=== PATIENT | female | born 1930 | race Caucasian/White ===

== ENCOUNTER → 2016-11-09 | Outpatient (CLI) | payer MEDICARE, OTHER ==
[2015-02-15 06:31] VITALS: BP 156/80
[~2016-11-09] MED LIST: AMLODIPINE BESYL5 MG PO; AMPICILLIN 500500 MG PO; CELEBREX PO; CELEXA 20MG20 MG/TA1 PO; FLEXERIL PO; FOLIC ACID1 MG PO; FUROSEMIDE PO; GOOD NEIGHBOR325 MG PO; HYDROCHLOROTHIA50 MG PO; IRON325 M1 PO; LEVEMIR100 U/M1 SC; NORCO 325 MG-51 TAB PO; NOVOLOG FLEX100 U/ML SC; POTASSIUM CL 220 MEQ PO; PRINVIL PO; PROTONIX 40MG T40 MG PO; VITAMIN C100 M2 PO; ZOFRAN4 M1 PO; [UNRECOGNIZED DRUG - OTHER] PO
== END ==
LOC: RAD 09:57
DX: M54.5 Low back pain (principal); M25.551 Pain in right hip

== ENCOUNTER → 2016-11-26 | Outpatient (CLI) | payer MEDICARE, OTHER ==
[2015-02-15 06:31] VITALS: BP 156/80
== END ==
LOC: LAB 08:55
DX: E11.9 Type 2 diabetes mellitus without complications (principal); I10 Essential (primary) hypertension

== ENCOUNTER 2016-12-03 09:00 | Outpatient (RCR) | payer MEDICARE, OTHER ==
[2015-02-15 06:31] VITALS: BP 156/80
== END 2016-12-03 12:00 | disposition home or self-care (01) ==
LOC: PT 09:00
DX: M54.5 Low back pain (principal); M25.551 Pain in right hip; M47.9 Spondylosis, unspecified; M25.78 Osteophyte, vertebrae; M16.11 Unilateral primary osteoarthritis, right hip; Z96.642 Presence of left artificial hip joint

== ENCOUNTER → 2017-06-04 | Outpatient (CLI) | payer MEDICARE, OTHER ==
[2015-02-15 06:31] VITALS: BP 156/80
[2017-06-04 14:00] LABS: MEAN PLATELET VOLUME 11.6 fl (7.4-10.4); RED BLOOD COUNT 4.96 M/mm3 (4.10-5.30); RED CELL DISTRIBUTION WIDTH 13.8 % (11.5-14.5); WHITE BLOOD COUNT 6.1 K/mm3 (4.8-10.8)
== END ==
LOC: LAB 13:37
PROVIDERS: Family Medicine
DX: E11.9 Type 2 diabetes mellitus without complications (principal)

== ENCOUNTER → 2018-05-25 | Outpatient (CLI) | payer MEDICARE, OTHER ==
[2015-02-15 06:31] VITALS: BP 156/80
[2018-05-25 08:55] LABS: HEMATOCRIT 45.3 % (37.0-47.0); HEMOGLOBIN 15.1 g/dL (12.5-16.0); MEAN PLATELET VOLUME 11.8 fl (7.4-10.4); RED BLOOD COUNT 5.03 M/mm3 (4.10-5.30); RED CELL DISTRIBUTION WIDTH 13.2 % (11.5-14.5); WHITE BLOOD COUNT 6.1 K/mm3 (4.8-10.8)
== END ==
LOC: LAB 08:12
PROVIDERS: Family Medicine
DX: E11.9 Type 2 diabetes mellitus without complications (principal)

== ENCOUNTER → 2018-09-27 | Outpatient (CLI) | payer MEDICARE, OTHER ==
[2015-02-15 06:31] VITALS: BP 156/80
== END ==
LOC: RAD 09:12
DX: I51.7 Cardiomegaly (principal); R06.2 Wheezing

== ENCOUNTER 2021-09-28 17:02 | Inpatient (IN) | payer MEDICARE, OTHER ==
[~2021-09-28] VITALS: Ht 160 cm; Wt 83.5 kg
[~2021-09-28 17:02] MED LIST changes: +LEADER ASPIRIN325 MG PO; -VITAMIN C100 M2 PO; +VITAMIN C500 M7 PO; -[UNRECOGNIZED DRUG - OTHER] PO
--- NOTE | 2021-09-28 17:20 | NUR ---
PATIENT ADMIT FROM [facility] POST STATUS RIGHT HIP REPAIR. PATIENT IS A&0X4. PATIENT IS A 2-3 ASSIST, DENIES PAIN WHEN LYING IN BED, STATES PAIN WITH MOVEMENT OF 8/10. PATIENT BLE NOTED WITH SCALING/SCABBING FROM [place] TO TOES. PROVIDER AWARE. PATIENT/FAMILY ORIENTED TO ROOM/FACILITY. ALL QUESTIONS ANSWERED. PATIENT RESTING IN BED WITH FAMILY AT BEDSIDE. PATIENT DENIES NEEDS OR COMPLAINTS AT THIS TIME. BED IN LOWEST LOCKED POSTION, CALL LIGHT WITHIN REACH.
[2021-09-28 18:09] VITALS: BP 147/80
[2021-09-28] MEDS ORDERED: IPRATROPIUM BROM3 M1 IH (18:25)
[2021-09-28] MEDS ORDERED: FERRO-TIME325 MG PO (18:26)
[2021-09-28] MEDS ORDERED: OS-CAL 500+D31 EACH PO (18:28)
[2021-09-28] MEDS ORDERED: COLACE100 M1 PO (18:32)
[2021-09-28] MEDS ORDERED: MIRALAX17 GM PO (18:33)
[2021-09-28] MEDS ORDERED: SENNA LAX8.6 M1 PO (18:34)
[2021-09-28] MEDS ORDERED: INSULIN AS100 UNIT/2 SQ (18:35)
[2021-09-28] MEDS ORDERED: MULTI-VITAMIN1 EACH PO (18:35)
[2021-09-28] MEDS ORDERED: COZAAR25 M1 PO (18:36)
[2021-09-28] MEDS ORDERED: ROXICODONE 55 MG/TAB PO (18:36)
[2021-09-28] MEDS ORDERED: LASIX40 M1 PO ×2 (18:38→21:47)
[2021-09-28] MEDS ORDERED: INSULIN AS100 UNIT/3 SQ (18:39)
[2021-09-28] MEDS ORDERED: LEVEMIR FLEX100 U/ML SQ (18:40)
--- NOTE | 2021-09-28 19:00 | NUR ---
Agree with documentation completed by SEASONER HAND.
--- NOTE | 2021-09-28 19:00 | NUR ---
REPORT GIVEN TO LOGAN RODRIGUEZ
--- NOTE | 2021-09-28 19:30 | NUR ---
Report received from Mel FORD.
--- NOTE | 2021-09-28 20:30 | NUR ---
Patient resting in bed alert and oriented x 4. Denies pain at rest. 2 assist onto bed pain with no results. Good lior-care provided and pure wick applied to suction. Patient has red cracked skin to right groin crease and panus. Areas cleaned and nystatin powder applied. Accu check [address] Barry notified.
--- NOTE | 2021-09-28 21:00 | NUR ---
Patient resting in bed and awakened by nurse. Alert to self, , month, time of day and year. States she's in a skilled nursing and reoriented to in [facility]. Speech clear and appropriate. Denies pain. Up to the bathroom with steady gait and brushes teeth. Rests back in bed. HS meds reviewed and swallowed without problems. Lights turned out. Bed alarm on and call light in reach. States her friends brought in cream cup earlier and declines snack.
--- NOTE | 2021-09-28 22:00 | NUR ---
Dr. Barry into see patient and patient assisted onto bedpan. Voids but no bm. HS meds reviewed and given along with tylenol for pain prevention. Reports has achy pain right hip with movement. Took milk for snack.
--- NOTE | 2021-09-28 23:33 | NUR ---
Per Dr. Barry, patient to have alicia boots applied tomorrow during the day for BLE edema and skin issues.
--- NOTE | 2021-09-29 05:34 | NUR ---
Patient initially felt she needed to have bm but then urinated via pure wick catheter and sensation left. Was going to get cath ua but voided at this time. Tylenol given for 8/10 pain to right hip with movement. Dull pain with slow movement and stabbing pain with quick movements. Patients states "yes" to sleeping well this noc.
[2021-09-29 06:28] VITALS: BP 153/65
[2021-09-29 09:48] LABS: BASO # 0.02 K/mm3 (0.02-0.10); EOS # 0.16 K/mm3 (0.04-0.40); EOS % 1.8 % (1.0-5.0); HEMATOCRIT 33.1 % (37.0-47.0); HEMOGLOBIN 10.7 g/dL (12.5-16.0); LYMPH# 0.62 K/mm3 (1.50-4.00); MEAN CELL VOLUME 94 fl (78-100); MEAN CORPUSCULAR HEMOGLOBIN 31 pg (27-31); MEAN CORPUSCULAR HGB CONC 32 g/dL (33-37); MEAN PLATELET VOLUME 11.9 fl (7.4-10.4); NEU # 7.05 K/mm3 (1.40-6.50); PLATELET COUNT 187 K/mm3 (130-400); RED BLOOD COUNT 3.51 M/mm3 (4.10-5.30); RED CELL DISTRIBUTION WIDTH 13.9 % (11.5-14.5)
[2021-09-29 09:51] LABS: POTASSIUM 4.2 mmol/L (3.5-5.1)
[2021-09-29 09:53] LABS: CALCIUM 8.8 mg/dL (8.3-10.5)
--- NOTE | 2021-09-29 13:59 | NUR ---
Called [facility] in [place] - Dr. Gilliland to cancel Sujey's appointment on at 2 pm. Will reschedule appointment for an after discharge day and time.
--- NOTE | 2021-09-29 16:41 | NUR ---
[facility] called and cancelled Sujey's appointment on 10/03/21 at 2 will rescedule follow up before discharges from [facility].
[2021-09-29 17:17] VITALS: BP 152/78
[2021-09-29 17:41] LABS: URINE APPEARANCE CLEAR; URINE BILIRUBIN NEGATIVE (NEGATIVE); URINE BLOOD NEGATIVE (NEGATIVE); URINE COLOR YELLOW; URINE GLUCOSE NEGATIVE (NEGATIVE); URINE KETONE NEGATIVE (NEGATIVE); URINE LEUKOCYTE ESTERASE NEGATIVE (NEGATIVE); URINE NITRATE NEGATIVE (NEGATIVE); URINE PROTEIN(semi-quant) 1+ (NEGATIVE); URINE UROBILINOGEN NORMAL (NORMAL); URINE WBC 0-1 /hpf (0-3)
[2021-09-29 17:42] LABS: URINE MUCUS PRESENT (NOT PRESENT)
--- NOTE | 2021-09-29 20:00 | NUR ---
RELATING TO SKIN CARE. PT WAS SITTING IN STOOL UPON ENTERING . PT ASSISTED TO BED OUT OF CHAIR WITH SIT TO STAND DEVICE WITH 2 PERSON ASSIST. PT CLEANED. A LARGE SKIN TAG IS NOTED ON RT BUTTOCKS THE SKIN TAG HAS A BLOOD BLISTER AND IS RED. SKIN GOLDSTEIN WAS APPLIED AFTER CLEANSING OF AREA. SKIN BETWEEN BUTTOCKS RED. PT HAS RAW SKIN IN FOLDS OF GROIN. THESE WERE CLEANSED AND ANTIFUNGAL POWDER PLACED. PT HAS 3 BANDAGES ON RT UPPER LATERAL LEG. THERE IS A FLUID FILLED BLISTER NOTED NEAR MOST SUPERIOR BANDAGE. ONCE SETTLED IN BED AND CLEANED A PUREWICK DEVICE WAS PLACED AND PT TURNED TO LT SIDE.
--- NOTE | 2021-09-30 01:21 | NUR ---
Report given to Dianne FORD
[2021-09-30 06:02] VITALS: BP 144/68
--- NOTE | 2021-09-30 07:00 | NUR ---
REPORT RECEIVED FROM LOGAN LOMBARDI. PATIENT RESTING IN BED WITH EYES CLOSED. BED IN LOWEST LOCKED POSTION, CALL LIGHT WITHIN REACH.
--- NOTE | 2021-09-30 09:30 | NUR ---
PATIENT UP TO CHAIR FOR MORNING MEAL. PLEASENT AND COOPERATIVE WITH CARES. STATES PAIN PRESENT WITH MOVEMENT, NOT WHILE "SITTING STILL". PATIENT HAS C/O NAUSEA, PRN ZOFRAN GIVEN. PATIENT DENIES OTHER NEEDS OR COMPLAINTS AT THIS TIME. R HIP INCISION DRESSINGS CLEAN DRY AND INTACT, LILIAN BOOTS ON BLE. CHAIR ALARM ON, CALL LIGHT WITHIN REACH.
[2021-09-30 17:06] VITALS: BP 169/75
--- NOTE | 2021-09-30 17:10 | NUR ---
PATIENT UP TO CHIAR FOR EVENING MEAL, FEET ELEVATED ON STOOL. PATIENT REMAINS PLEASENT AND COOPERATIVE WITH CARES. PRN APAP GIVEN FOR PAIN THROUGHOUT THE DAY. PATIENT USING SIT TO STAND LIFT FOR TRANSFERS WITHOUT DIFFICULTY. PATIENT OFFERS NO NEEDS OR COMPLAINTS AT THIS TIME. CHAIR ALARM ON. CALL LIGHT WITHIN REACH.
--- NOTE | 2021-09-30 20:00 | NUR ---
IN REGUARDS TO PT SKIN. RT LATERAL UPPER LEG IS EDEMITIS WITH 3 SMALL DRESSING. BLISTER NEAR UPPER DRESSING IS NO LONGER FLUID FILLED. LT UPPER LEG IS EDEMITIS. LARGE SKIN TAG OR GROWTH ON RT BUTTOCKS HAS BRUISING AND IN SKIN FOLDS CREASES ARE RED AND RAW. PT HAS LILIAN BOOTS IN PLACE BILATERALLY FOR DRY SCALEY SKIN. PT DENIES PAIN AT THIS TIME.
--- NOTE | 2021-10-01 00:32 | NUR ---
Report given to Geovanna FORD
--- NOTE | 2021-10-01 02:41 | NUR ---
Rings call light. "Just can't get comfortable". Denies pain. Adjusted in bed by staff. Heels floated on pillow. Tylenol 650 MG given.
--- NOTE | 2021-10-01 04:56 | NUR ---
Rings call light and requests that her blood sugar be check. Accu-check 122, states she usually runs in the 200's. Unable to get comfortable. Staff repositions. SAO2 99% on 2.5 L/NC. Oxygen turned down to 1.5 L/NC. Patient states she does not wear oxygen at home.
--- NOTE | 2021-10-01 05:23 | NUR ---
Oxygen level recheck is 98% on 1.5L/NC.
[2021-10-01 06:16] VITALS: BP 134/57
--- NOTE | 2021-10-01 07:00 | NUR ---
Report received from LOGAN Boone.
--- NOTE | 2021-10-01 07:03 | NUR ---
Report to Mel FORD
--- NOTE | 2021-10-01 08:04 | NUR ---
Assessment charted. Pt on commode, had loose brown BM and states she also urinated in commode. [id number] used to g et pt up and cleaned, pericare provided, cream applied to sacral area and powder to pannus. R superior surgical site has some blistering from previous dressing. Distal sites are CDI with gauze and tegaderm. Pt feeling nauseated from using lift, will provide PRN nausea and pain meds for discomfort in R hip. Anna boots bilaterally for scaley legs. Will continue to monitor.
--- NOTE | 2021-10-01 13:25 | NUR ---
Bladder scan patient as she had not voided since 744, revealed 680 mls total, pt able to get up with therapy and assist of 2 staff to stand and then placed commode behind her and she was able to void 250 mls and have liquid stool. Pt did not tolerate pain well, used [id number] to get back to bed and do therapy in bed with PT. PRN meds have been given.
[2021-10-01 17:14] VITALS: BP 125/64
--- NOTE | 2021-10-01 18:32 | NUR ---
Pt rested this afternoon, able to nap for some time but WBG low upon waking, was 40. Snack provided and pt feeling better, able to get up to commode with [id number] lift and then to rcliner, did void this afternoon on commode. PRN pain meds given over shift and educated on need to manage pain so she is willing to move and get to commode, chair and work with therapy. Pt agreeable to rotating pain meds and trying to keep moving. PRN nausea meds given at times over shift for nausea that starts after moving, Denies needs, will give report to nightshift nurse who will resume care.
--- NOTE | 2021-10-01 19:00 | NUR ---
Report received from Mel FORD.
--- NOTE | 2021-10-01 21:30 | NUR ---
Patients accu check 139 and scheduled levemir given. HS meds along with roxycodone for right hip pain and zofran to prevent nausea given. 2 assist via sit to stand lift to BSC and voids 200mls nicole concentrated urine mixed with small loose bm. Jennifer-care done. Max assist to rest back in bed. BLE elevated on pillows. HS snack was given earlier.
--- NOTE | 2021-10-02 02:00 | NUR ---
Patient has been resting with eyes closed.
--- NOTE | 2021-10-02 04:30 | NUR ---
Patient called for assist and felt her blood sugar might be low. Anxious. VSS and blood sugar 122. Offered tylenol for right hip pain when moved and given. Calms shortly after.
[2021-10-02 06:04] VITALS: BP 151/77
--- NOTE | 2021-10-02 08:58 | NUR ---
Pt alert and oriented x4. Pt states had diarrhea this morning and refuses colace. Pt states she is at 0/10 for pain if she doesn't move. She rates pain at 7/10 with movement. Advised pt that movement is necessary to keep ROM, avoid constipation, & keep blood flowing for healing. Pt voices understanding. Pt swallowed pills well. Pt was tearful and states that she feels like she is "taking up space that someone else could use better". Pt c/o feeling "useless" & states that her "daughter made a mistake by coming home to care for her father and now me." Pt apologized for being tearful. This nurse advised that this time with her and her daughter are important for both of them and encouraged the pt to talk and voice her feelings. Pt voiced understanding and agreement. This nurse adjusted BLE on pillow and elevated. Pt resting in chair. Chair alarm on and call light within reach.
--- NOTE | 2021-10-02 16:48 | NUR ---
Pt moved from room 308 to 206. Patient in much better mood this afternoon. She spoke with this nurse during change of dressing about her children and home. No signs of mental distress displayed this morning. Pt complains of hip pain after PT. She says that it is relieved with rest and requests to rest bed after PT and dressing change. Patient alert & oriented x4. PUMP INSTALLATION AND SERVICER at bedside upon leaving the room.
[2021-10-02 17:19] VITALS: BP 135/68
--- NOTE | 2021-10-02 17:29 | NUR ---
[employer]BACORE FISHING BOAT CREWMAN reports to this nurse that patient is experiencing n/v. Upon assessment, patient denies current pain. She states, "as long as I don't move, it doesn't hurt." Pt states that she experiences n/v with pain and reports that she has n/v since admission. Pt denies headache & blurred vision. Pt reports loss of appetite. Pt unable to eat dinner. PRN medication given. Pt resting in bed, call light within reach.
--- NOTE | 2021-10-02 18:43 | NUR ---
Rechecked pts SA02 while in bed. She was speaking with label machine operator while they were drawing labs. SA02 steady @ 94% with pulse at 75. Lab techs at bedside when this nurse left.
--- NOTE | 2021-10-02 19:01 | NUR ---
Report given to Geovanna. Pt in bed resting, call light within reach.
--- NOTE | 2021-10-02 19:19 | NUR ---
Report received from Bárbara /Student RN. Patient resting supine in bed. Oxygen increased from 0.5L/NC to 2L/NC due to elevated carboxyhemoglobin level of 2.8 from facility gas leak. Patient made aware of this. A/O x4. Denies pain at this time. Denies nausea. Discussed taking pain medication on a more reqular basis to stay ahead of the pain, agreeable to plan.
--- NOTE | 2021-10-03 01:37 | NUR ---
Patient has been resting quietly with oxygen in place at 2L/NC. Has oxycodone with HS medications for pain control. Took with applesauce and saltine cracker. No nausa reported.
--- NOTE | 2021-10-03 04:33 | NUR ---
Up to BSC via Sit-stand lift. Voids and had small soft formed BM. Assisted back to bed. No grimace noted. States "it didn't hurt as bad this time.". Reinforced need to keep pain medication on board. Denies pain at rest. Still unable to lift or screw remover legs on her own. Relys on staff screw remover movenment on and in and out of bed. Denies nausea through the night, states she slept well. SAO2 96-97% on 2L/NC.
--- NOTE | 2021-10-03 05:40 | NUR ---
Awkens easily for AM medication. Oxycodone given for pain control. Takes with applesauce. Denies pain or needs.
[2021-10-03 05:55] VITALS: BP 157/65
--- NOTE | 2021-10-03 07:12 | NUR ---
Report to Bárbara FORD Student.
[2021-10-03 07:48] LABS: BASO # 0.04 K/mm3 (0.02-0.10); EOS # 0.18 K/mm3 (0.04-0.40); EOS % 2.3 % (1.0-5.0); HEMATOCRIT 30.5 % (37.0-47.0); HEMOGLOBIN 9.9 g/dL (12.5-16.0); LYMPH# 0.78 K/mm3 (1.50-4.00); MEAN CELL VOLUME 96 fl (78-100); MEAN CORPUSCULAR HEMOGLOBIN 31 pg (27-31); MEAN CORPUSCULAR HGB CONC 33 g/dL (33-37); MEAN PLATELET VOLUME 11.4 fl (7.4-10.4); MONO # 0.99 K/mm3 (0.20-0.80); NEU # 5.81 K/mm3 (1.40-6.50); PLATELET COUNT 259 K/mm3 (130-400); RED BLOOD COUNT 3.19 M/mm3 (4.10-5.30); RED CELL DISTRIBUTION WIDTH 14.7 % (11.5-14.5); WHITE BLOOD COUNT 7.9 K/mm3 (4.8-10.8)
[2021-10-03 07:54] LABS: ALBUMIN 2.8 g/dL (3.4-4.8)
[2021-10-03 07:55] LABS: CALCIUM 8.3 mg/dL (8.3-10.5)
[2021-10-03 07:58] LABS: TOTAL BILIRUBIN 1.3 mg/dL (0.2-1.2)
--- NOTE | 2021-10-03 10:13 | NUR ---
Poison control called at this time.
--- NOTE | 2021-10-03 10:16 | NUR ---
Poison control contacted per verbal order by Devika Go APRN. Poison control confirms that moving the patient away from exposure, applying oxygen and continuing to monitor were proper interventions for carbon monoxide toxicity. They recommend further dx studies such as troponin, EKG and lactic acid. Information given to Devika Up APRN. See new orders. Poison control will contact this nurse in a few hours with f/u results and set of VS. Faxed information regarding request for exposure at the [facility]. Fax recieved and given to DEPUTY DIRECTOR OF PUBLIC WORKS. Risk managment to f/u.
--- NOTE | 2021-10-03 10:30 | NUR ---
Non-rebreather removed with 10L of oxygen. PS02 97% with 2L per NC applied. No c/o SOA or discomfort. She states, "I feel so much better with that oxygen."
--- NOTE | 2021-10-03 11:33 | NUR ---
Assessment completed at 0836 alert & oriented x4. Sitting with HOB raised about 45 degrees. Complains of SOB and nausea. This nurse notes light wheezing in left lobes of lungs. Report to Devika Urbano APRN. Assisted with help of SENIOR VICE PRESIDENT & GENERAL COUNSEL to bedside commode & then to chair to be more upright, feet elevated on pillow. @ 0959 moved pt to 10L oxygen and non-rebreather mask for 1 hour. After 1 hour pt states that nausea was relieved and reports that she is no longer feeling SOB. Pt in chair with feet elevated, completing breathing treatment, call light on tray table.
--- NOTE | 2021-10-03 16:02 | NUR ---
Poison control contacted this nurse. VSS, troponin WNL, Lactic acid WNL, EKG WNL for patient per Devika Go APRN. All findings reported to poison control. Information reviewed, will no longer need further tx and/or interventions for carbonmonoxide toxicity, per poision control.
[2021-10-03 17:01] VITALS: BP 158/70
--- NOTE | 2021-10-04 04:29 | NUR ---
Up to BSC via Sit-stand lift and 2 assist. Has some grimacing when going from lying to sitting position. Voids and has medium soft BM. Assisted back to bed. Wt obtained. 210.9 down 0.3LBs. Patient does not feel like she is voiding enough. Some pursed lipped breating noted with repositoning with lift. Settles after back in bed.
--- NOTE | 2021-10-04 05:22 | NUR ---
AM medication taken. Oxycodone 5 MG given for pain control. Resting in bed with HOB elevated. Denies wants or needs.
[2021-10-04 05:46] VITALS: BP 177/66
--- NOTE | 2021-10-04 07:07 | NUR ---
Report to Kimberley FORD.
--- NOTE | 2021-10-04 08:19 | NUR ---
Patient A&Ox4, 1L per NC, no c/o of pain or discomfort at rest. Swallowed pills whole with water. Eating breakfast. Transfered with sit to stand from bed to commode and commode to chair. Reports upset stomach with pain medication. Suggest taking food with PRN medications in between meals. Patient agreed. Reports she slept well last night. Last BM 10/04/21. Encouraged to work with staff with weekend restorativie program. Patient agreed. Chair in locked position. Call light within reach.
[2021-10-04 17:30] VITALS: BP 178/60
--- NOTE | 2021-10-04 19:10 | NUR ---
Report received from Kay Reyes RN and care assumed. Pt resting in chair with eyes closed and no signs of distress or discomfort noted. Call light in reach, chair alarm on.
--- NOTE | 2021-10-04 21:30 | NUR ---
Pt states some right leg/hip pain that feels like muscle spasms. Offered pt pain medication and pt accepted. No further needs at this time.
--- NOTE | 2021-10-04 23:30 | NUR ---
Pt resting in bed with eyes closed and no signs of distress or discomfort noted at this time. Call light in reach, bed alarm on.
--- NOTE | 2021-10-05 04:38 | NUR ---
Pt continues resting in bed with eyes closed and no signs of distress or discomfort noted. Respirations even and unlabored. Call light in reach, bed alarm on.
[2021-10-05 06:17] VITALS: BP 164/53
--- NOTE | 2021-10-05 07:10 | NUR ---
Report given to LOGAN Huizar.
[2021-10-05 17:09] VITALS: BP 156/74
--- NOTE | 2021-10-05 19:00 | NUR ---
Report received from Gaye FORD.
--- NOTE | 2021-10-05 21:00 | NUR ---
Patient rests in bed. HS meds along with roxycodone for right hip pain reviewed and given. Accu check 142. Encouraged snack with pain med and to prevent low blood sugar and takes several saltine crackers and eats home jello/yogurt family brought in. Alert and oriented x 4. States she feels pretty good tonight.
--- NOTE | 2021-10-06 01:02 | NUR ---
Patient continues resting with eyes closed.
--- NOTE | 2021-10-06 03:30 | NUR ---
Patient awake and called for assist to commode to have bm. States she's been sleeping really good tonight. Alert and oriented x 4. Up to BSC via sit to stand lift and 2 assist. Incontinent of large amount of urine and voids and has small soft formed brown bm. Good lior-care done and groin creases/panus cleansed and patted dry and nystatin powder applied. Max assist to rest back in bed. Wt decreased from 213.3 to 210 lbs.
[2021-10-06 05:05] VITALS: BP 108/72
--- NOTE | 2021-10-06 11:00 | NUR ---
PATIENT UP TO CHAIR FOR BREAKFAST. TOOK MEDICICATIONS WITHOUT DIFFICULTY. TEARFUL THIS MORNING WHILE DISCUSSING HER LIMITED MOBILITY. PLAN TO TREAT PAIN BEFORE NEXT THERAPY SESSION. CALL LIGHT WITHIN REACH, CHAIR ALARM ON.
--- NOTE | 2021-10-06 15:00 | NUR ---
PATIENT UP TO BEDSIDE COMMODE. ABLE TO STAND AND PIVOT WITH DIFFICULTY AND PAIN. ASSISTED TO RECLINER FOR SUPPER. MUSCLE RUB APPLIED TO R HIP, AVOIDING INCISIONS. ZOFRAN GIVEN FOR NAUSEA. INSULIN HELD DUE TO LOW BLOOD SUGAR AND DIMINISHED APPETITE, DISCUSSED AND APPROVED BY PROVIDER.
[2021-10-06 15:53] VITALS: BP 150/67
[2021-10-06 16:04] LABS: BASO # 0.07 K/mm3 (0.02-0.10); EOS # 0.18 K/mm3 (0.04-0.40); EOS % 2.2 % (1.0-5.0); HEMATOCRIT 33.1 % (37.0-47.0); HEMOGLOBIN 10.5 g/dL (12.5-16.0); LYMPH# 0.74 K/mm3 (1.50-4.00); MEAN CELL VOLUME 97 fl (78-100); MEAN CORPUSCULAR HEMOGLOBIN 31 pg (27-31); MEAN CORPUSCULAR HGB CONC 32 g/dL (33-37); MEAN PLATELET VOLUME 11.2 fl (7.4-10.4); MONO # 0.96 K/mm3 (0.20-0.80); NEU # 6.01 K/mm3 (1.40-6.50); PLATELET COUNT 143 K/mm3 (130-400); RED BLOOD COUNT 3.41 M/mm3 (4.10-5.30); RED CELL DISTRIBUTION WIDTH 15.9 % (11.5-14.5)
[2021-10-06 16:14] LABS: POTASSIUM 3.8 mmol/L (3.5-5.1)
[2021-10-06 16:15] LABS: CALCIUM 8.9 mg/dL (8.3-10.5)
--- NOTE | 2021-10-06 20:47 | NUR ---
Report received from Stephanie FORD. Patient resting in bed. Oxygen in place at 1L/NC. Assessment completed. Denies pain at rest. Oxycodone 5 MG taken at this time for pain control/prevention. No nausea noted. Takes meds with applesauce to protect GI. Geena held, has had loose BM's. Blood sugar 229. 6 units of Humalog given in ELENA per SS. Levemier 8 Units given per scheduled dose. Powder to below breasts and groin folds, areas improving. Denies wants or needs at this time. FARM MANAGER's report patient was a 2:1 pivot transfer from recliner to BSC then sit-stand lift from BSC to bed. Resting, bed alarm on. Call light in reach.
[2021-10-07 06:01] VITALS: BP 152/54
--- NOTE | 2021-10-07 07:08 | NUR ---
Report to Gaye FROD.
--- NOTE | 2021-10-07 09:16 | NUR ---
Spoke with Sujey about her healing process and that medically she was not able to participate in therapy as she would like. She has been here 9 days and is making progress. Went over what Medicare pays 1-20 days 100% coverage 21-100 80-20% coverage. Sujey's fluid retention is improving but will likely take another week or so before she will feel the improvement of fluid loss. Called Daughter Leana and explained the above.
--- NOTE | 2021-10-07 17:05 | NUR ---
EARS IRRIGATED WITH MINIMAL CERUMEN EVACUATED. JEANNE CASTILLO NOTIFIED.
[2021-10-07 17:18] VITALS: BP 118/57
--- NOTE | 2021-10-07 20:41 | NUR ---
Report received from Gaye FORD. Patient resting supine in bed. A/O x4. Denies pain at rest. Oxygen in place at 1L/NC. Assessment completed. Staff continues to utilize Sit-stand lift for transfers. Bed alarm on. Call light in reach.
--- NOTE | 2021-10-08 02:00 | NUR ---
Up to BSC with MAX assist of 2 and sit-stand lift. Needs much encouragment to help move self in bed, sit up etc. Voids and has small BM and is incontinent of bladder. Assisted back to bed. Pur-wick placed. Positioned with MAX assist of 2 in bed. Bed alarm on. Call light in reach.
--- NOTE | 2021-10-08 05:32 | NUR ---
Rested well. AM medication taken. Denies pain.
[2021-10-08 05:41] VITALS: BP 119/62
[2021-10-08 06:51] LABS: POTASSIUM 3.5 mmol/L (3.5-5.1)
[2021-10-08 06:53] LABS: CALCIUM 8.6 mg/dL (8.3-10.5)
--- NOTE | 2021-10-08 07:01 | NUR ---
Report to Gaye FORD.
[2021-10-08 17:11] VITALS: BP 151/55
--- NOTE | 2021-10-08 19:00 | NUR ---
Report received from Gaye FORD.
--- NOTE | 2021-10-08 20:00 | NUR ---
Patient sitting up in recliner with cam boot on LLE. Denies pain at rest but reports pain with minimal touch/movement. HS meds along with xanax and tylenol for rest and pain reviewed and taken without problems. Oriented to self, , in [place] and that it's evening. Disoriented to place, month and year. CNAs assisted patient to bed via full lift.
--- NOTE | 2021-10-08 20:30 | NUR ---
Patient rests in bed awake. HS meds reviewed and given. Accu check 251 and patient refused snack reported to Tori CHRISTIANSON. States she had a glucerna with supper and not hungry. Does take package of saltine crackers with pain med and potassium pill. New order received to hold tonights SSI and just give scheduled levemir-given. States not having pain "if I don't move" and roxycodone 5 mg given.
--- NOTE | 2021-10-09 03:30 | NUR ---
Patient awake and stating her foot hurts. Tramadol given. Alert to person, but disoriented to time, month, year and situation. Patient had taken out purewick catheter and incontinent of urine. Changed and repositioned.
[2021-10-09 05:44] VITALS: BP 145/51
--- NOTE | 2021-10-09 06:00 | NUR ---
Patient reports she didn't rest well this noc. "feel like a tight band of fluid"around upper waist/epigastric area. Demadex given at this time. Wt 95 KG on 10/08 and 94.6 this am. Offered tylenol for pain prevention and given. Right hip "only hurts when I move".
--- NOTE | 2021-10-09 08:49 | NUR ---
A&O x4. pt c/o nausea. Pt denies any pain except when moving right hip. Pt denies SOB or difficulty breathing and states "I feel better with breathing since taking the diuretics." Pt states that she is looking forward to her daughter visiting today and that she will be bringing her a chicken leg to try to help stimulate her appetite as she misses food from home. Pt is asking for toenails to be trimmed. Fourth toe on left food has dried blood around the toe. Pt denies any known trauma to the toe. Pt has call light next to her, chair alarm on, and is resting with legs elevated in chair. Pillows under legs and back.
--- NOTE | 2021-10-09 13:31 | NUR ---
spoke with jorje today and she states that last night she didn't sleep well due to difficulty breathing. At this time she feels a lot better. She likes her bigger room.
--- NOTE | 2021-10-09 15:52 | NUR ---
Discharging acute patient to swing bed. No acute changes. Acharya, INT, and Tele continues.
[2021-10-09 17:40] VITALS: BP 144/80
--- NOTE | 2021-10-09 18:12 | NUR ---
Pt showered, feet soaked after unna boots removed. Used 2 pkg of unna per foot to wrap after soaking and lightly scrubbing both feet. Finished bandages with shelbyan (1 roll per leg). Pt resting in chair with feet elevated in recliner, pillow under knees and heels floating. Pt denies any pain but states that she is "worn out" from therapy and shower. Chair alarm activated & call light within reach.
--- NOTE | 2021-10-09 19:00 | NUR ---
Report received from Bárbara Schmidt.
--- NOTE | 2021-10-09 20:00 | NUR ---
Patient sitting up in recliner and just finished brushing teeth. Alert and oriented x 4. Denies pain or shortness of breath. States diuretics have helped her breathing. HS meds reviewed along with SSI and jamil and given. Takes snack of chocolate glucerna. CNAs assisted patient to bed via sit to stand lift , good lior-care done and powder applied. No redness noted. Pure wick catheter applied to suction.
--- NOTE | 2021-10-09 23:00 | NUR ---
Patient has been resting with eyes closed. Respirations with ease.
--- NOTE | 2021-10-10 00:35 | NUR ---
Patient resting in bed awake. States just woke up and right foot burning 8/10 pain. Roxycodone given with crackers. States she has been sleeping for several hours. "I was wore out".
--- NOTE | 2021-10-10 03:45 | NUR ---
Patient called for assist and states my left foot is burning. Coban to top of foot stretched and loosened and pulled dressing down so not over 3rd toe thats toenail had bled previously. Patient states she dosn't remember stubbing her toe on anything. Patient states "I have no pain now". Tylenol given.
--- NOTE | 2021-10-10 05:00 | NUR ---
Patient rests with eyes closed.
[2021-10-10 05:35] VITALS: BP 156/66
[2021-10-10 07:36] LABS: BASO # 0.08 K/mm3 (0.02-0.10); EOS # 0.13 K/mm3 (0.04-0.40); EOS % 2.1 % (1.0-5.0); HEMATOCRIT 31.4 % (37.0-47.0); HEMOGLOBIN 9.8 g/dL (12.5-16.0); MEAN CELL VOLUME 100 fl (78-100); MEAN CORPUSCULAR HEMOGLOBIN 31 pg (27-31); MEAN CORPUSCULAR HGB CONC 31 g/dL (33-37); MEAN PLATELET VOLUME 11.1 fl (7.4-10.4); MONO # 0.71 K/mm3 (0.20-0.80); NEU # 4.54 K/mm3 (1.40-6.50); PLATELET COUNT 247 K/mm3 (130-400); RED BLOOD COUNT 3.15 M/mm3 (4.10-5.30); WHITE BLOOD COUNT 6.1 K/mm3 (4.8-10.8)
[2021-10-10 07:39] LABS: POTASSIUM 4.2 mmol/L (3.5-5.1)
[2021-10-10 07:40] LABS: CALCIUM 8.9 mg/dL (8.3-10.5)
--- NOTE | 2021-10-10 08:38 | NUR ---
While giving meds, this nurse watched the pt swallow. This nurse questioned whether the pills were getting stuck in her throat today or if they were going down easier. Pt pointed at her head and stated, "It's all in my head." Pt took her potassium pill and this nurse witnessed pt chewing. This nurse asked the pt if she was chewing the pill. Pt shook her head to affirmate that the pills were being chewed. This nurse advised the pt that potassium pills shouldn't be chewed. This nurse advised the pt that we could put the pill in a small amount of juice and allow it to dissolve and she could just drink the juice. Pt stated "yes, that would be great." Pt left in chair, call light within reach, BLE elevated, heels floating, chair alarm activated.
--- NOTE | 2021-10-10 10:03 | NUR ---
Pt a/o x4. pt c/o pain rdiating from right hip down to knee. She states that she didn't sleep well due to pain on top of left foot above broken toenail. Pt reports pain level @ 5/10; denies pain at top of left foot or in toenail. Cap refill less than 1 second in BLE. Pt states that she "is tired of not being able to walk" and verbalizes being discouraged with progress. This nurse reminded the pt of the progress she made with PT/OT yesterday and encouraged her to keep working and progress will continue. Pt nodded agreement and vergalized she will keep truing. Pt in bedside chair, BLE elevated, heels floated, call light within reach and chair alarm on.
--- NOTE | 2021-10-10 10:39 | NUR ---
Pt in chair with feet elevated, heels floating. Pt states no pain 0/10 scale after PRN medication. Pt craiga boot koband wrap coming undone. Wrapped TUAN bandage over unna & koband to secure. Placed non-slip socks over the top to prevent slips. Left pt with [employer] P[employer]T GRADER
--- NOTE | 2021-10-10 11:18 | NUR ---
Pt resting in bedside chair, BLE elevated, heels floating after PT. Pt states that she "took a few steps and came right back into the room". This nurse advised the pt that she needs to look at what she is accomplishing and not what she thinks she should be able to. Pt verbalized agreement. Pt denies any pain or discomfort. This nurse was advised that the pt was moved to 2 L of 02 via nasal canula @ 1100 following PT. Pt denies any SOB. Pt educated on using call light to report pain or discomfort. Pt verbalized understanding. Pt left in bedside chair, BLE elevated, heels floating, call light within reach, activated chair alarm.
--- NOTE | 2021-10-10 14:35 | NUR ---
PT & OT report to this nurse that pt feeling nausea and unable to really complete therapy this afternoon. Therapists state that pt was dropping to 88-90% SAO2 during her session this morning. Pt was given 2 L of O2 via nasal canula @ 1100. Therapists assisted pt into bed. This nurse gave PRN medication for nausea. Pt denied having nausea all day with this nurse. Prior to therapy, this nurse asked the pt if experiencing nausea or pain and both were denied. Pt told therapists that "nausea began before therapy". This nurse asked the pt when it started and pt stated, "I don't know when it started." This nurse offered pt cool wash cloth for neck to help with nausea. Pt refused. This nurse offered to help pt dim lights in the room to help pt rest, pt verbally agreed and turned down lights with callbutton. This nurse verified that pt was comfortable in bed, pt states 0/10 pain, HOB and knees elevated in bed, call light in place, bedside tray within reach.
--- NOTE | 2021-10-10 15:18 | NUR ---
@1426 this nurse assessed pts pain. Pt denied having pain. @1518 this nurse went to reassess pt's nausea after zofran at 1425. pt states "It has helped just a little bit." Pt then states, "I have a pain in my right hip." This nurse suggested that we reposition in bed. Pt refused stating that movement makes the pain worse. Pt rates pain 5/10. Pt states she "just wants to rest". Left pt resting in bed, heels floating, HOB slightly raised, knees slightly raised, and call light within reach.
[2021-10-10 17:14] VITALS: BP 144/54
--- NOTE | 2021-10-10 18:53 | NUR ---
Report given to Geovanna
--- NOTE | 2021-10-10 20:35 | NUR ---
Report received from Bárbara RN community health nursing director. Patient observed resting supine in bed with oxygen in place at 2L/NC. Patient is A/O x4. Denies pain, denies dizziness or nausea. Blood sugar 286. Levemier 8 units given along with 4 Units of Humalog SS. PRN Oxycodone given at this time for pain control/prevention. K+ given dissolved in OJ per patient request. Encouraged patient to eat some crackers with medications to prevent GI upset. Assessment completed. Denies wants or needs. Bed alarm on. Call light in reach.
--- NOTE | 2021-10-10 21:11 | NUR ---
Rings call light and states top of L foot hurting. Wrap pulled up to loosen. Ice pack applied. Has analgesic with HS medications.
--- NOTE | 2021-10-11 00:17 | NUR ---
Rests with eyes closed.
--- NOTE | 2021-10-11 03:06 | NUR ---
Up to BSC via sit-stand lift. Patient is a MAX 2 assist from lying to sitting position. States she just "can't do it" or get her legs to move.
[2021-10-11 05:18] VITALS: BP 163/66
--- NOTE | 2021-10-11 07:10 | NUR ---
Report to Stephanie FORD.
--- NOTE | 2021-10-11 10:30 | NUR ---
Patient alert and oriented. Up to chair for breakfast via [id number] lift. No complaints of pain when resting. Call light in reach, chair alarm on.
[2021-10-11 16:50] VITALS: BP 154/62
--- NOTE | 2021-10-11 19:03 | NUR ---
Patient ambulated from chair to commode, then to the bed. Tolerated well with 2 staff assist and platform walker. Tearful x2 this shift. Verbalizes frustration with slow progress. Denies pain when sitting still.
--- NOTE | 2021-10-11 20:45 | NUR ---
Pt resting in bed. A/O x 4. Denies pain when not moving. Puriwick in place - clear yellow urine noted. 02 at 2 L/NC. Lungs clear. Unna boots covered w/ coban in place to bilateral lower extremities. Incisions to right leg well approixmated with two steri strips loose - no drainage or redness. Noted to have some swelling above unna boots bilateral lower legs. Remains on fluid restriction.
--- NOTE | 2021-10-11 22:14 | NUR ---
Oxycodone 5 mg given per request for burning in left foot 09/28. Encouraged to reposition onto side and off bottom but pt refuses at this time. Call light in reach and bed alarm on.
--- NOTE | 2021-10-11 22:30 | NUR ---
Report received from Leana FORD. Patient resting in bed with eyes closed. Oxygen in place at 2L/NC. Respirations even and non-labored. Purwick in place with continuous suction. Bed alarm on. Call light in reach.
--- NOTE | 2021-10-12 02:30 | NUR ---
Up to BSC via 2 assist with Sit-stand lift. Voids 600 ML of clear yellow urine. Has Small Soft formed BM. No SOA noted. No grimacing or signs of pain. No verbalization of dizziness. Happy that daily weight is now below 200#.
--- NOTE | 2021-10-12 05:30 | NUR ---
Awake in bed. AM medications taken at this time. Denies pain or needs.
[2021-10-12 06:04] VITALS: BP 163/68
--- NOTE | 2021-10-12 07:05 | NUR ---
Report to Stephanie FORD.
[2021-10-12 17:00] VITALS: BP 149/65
--- NOTE | 2021-10-12 18:31 | NUR ---
Patient A&Ox4. Up to chair for meals. Declined walking to chair today with staff. Stated several times that "it isn't a good day". When questioned further, states that she takes "one step forward and two steps back". Staff provided encouragement. Patient still declined walking a few feet from the bed to the chair. Denied any pain when resting. Pain 5/10 in hip when tranferring. Call light in reach. Chair alarm on.
--- NOTE | 2021-10-12 18:55 | NUR ---
Report given to LOGAN Chu
--- NOTE | 2021-10-12 21:02 | NUR ---
Patient used sit to stand with transfer from chair to commode. Patient reports she refused ambulating with walker and exercises throughout the day. She states, "I just take one step forward and 2 steps back." She reports feeling weaker today and not able to participate. Patient encouraged multiple times to use walker and complete exercises. Swallowed pills whole with water. Dependent with set up of HS cares. Purewick in place per patient request. Patient states, "I don't want to be up to the bathroom all night." BG 255, insulin given per orders. Bed in lowest and locked position. Call light within reach.
[2021-10-13 05:07] VITALS: BP 166/66
--- NOTE | 2021-10-13 07:00 | NUR ---
Report received from LOGAN Chu.
--- NOTE | 2021-10-13 10:39 | NUR ---
Assessment charted. Pt up to shower with staff, removed UNNA boot and replaced after shower, CNAs removed most of sloughing skin in shower and per them the legs are improving bilaterally from the UNNA boots. Replaced with UNNA boot and loose COBAN. Pt toleraetd well. Able to walk to bathroom with 2PAX and walker with gait belt. Pt up to have BM. Tolerating well. Asked about podiatry and they no longer see patients in the hospital so will need OP follow up upon discharge. Will continue to monitor.
--- NOTE | 2021-10-13 17:56 | NUR ---
Pt resting in chair after supper,doing well, did not want to take any pain medication all day, when asked stated that pain was zero except when moving. encouraged pt to use walker all day, pt did ask each time for [id number] lift but reminded her that we need to continue to use the walker as often as possible to encourage progress. When pt on commode, pt stated "i'm done" and I handed her a wipe, she responded that she "can't do that herself" and reminded her that if she wants to continue towards independence that she needs to try on her own and we can assist with anything she is unable to do but it is important for her to make the initial attempt. Pt agreeable to this plan but did require encouragment to initiate. Denies needs, resting with 2L NC. Will give report to nightshift nurse who will resume care.
[2021-10-13 17:59] VITALS: BP 102/67
--- NOTE | 2021-10-13 21:20 | NUR ---
Report received from Mel FORD. Patient resting in bed with oxygen in place at 1L/NC. Was just up to BS with 1-2 assist and platform walker. Had large BM. Denies pain. Oxycodone taken for pain control. Blood sugar 345. 6 Units of SS Novolog and 8 Units of Levemier given in ELIJAH. Assessment completed. Denies wants or needs. Bed alarm on. Call light in reach.
--- NOTE | 2021-10-14 02:27 | NUR ---
Resting quietly with eyes closed. No signs of pain or distress. Oxygen in place at 1L/NC. Bed alarm on. Call light in reach.
[2021-10-14 05:39] VITALS: BP 151/67
--- NOTE | 2021-10-14 05:45 | NUR ---
Patient rested well all night. Up earlier in shift around 2200 and had large BM. Has not rang to get OOB to use BSC rest of shift. AM medications taken this AM. Denies wants, pain or needs at this time.
--- NOTE | 2021-10-14 07:00 | NUR ---
REPORT RECEIVED FROM ANA TOMLIN.
--- NOTE | 2021-10-14 07:01 | NUR ---
Report to [facility] TITLE I TEACHER.
--- NOTE | 2021-10-14 08:15 | NUR ---
PATIENT PLEASENT AND COOPERATIVE WITH CARES. UP TO CHAIR FOR FOR MORNING MEAL. A&OX4, DENIES PAIN AT THIS TIME. PATIENT STATES RESTED WELL AND IS READY FOR THERAPY TODAY. PATIENT USING WALKER WITH 2X ASSIT. OFFERS NO OTHER NEEDS OR COMPLAINTS AT THIS TIME. CHAIR ALARM ON, CALL LIGHT WITHIN REACH.
[2021-10-14 08:50] LABS: POTASSIUM 3.4 mmol/L (3.5-5.1)
[2021-10-14 08:51] LABS: CALCIUM 8.9 mg/dL (8.3-10.5)
[2021-10-14 08:52] LABS: HEMATOCRIT 36.3 % (37.0-47.0); HEMOGLOBIN 11.4 g/dL (12.5-16.0); MEAN CELL VOLUME 99 fl (78-100); MEAN CORPUSCULAR HEMOGLOBIN 31 pg (27-31); MEAN CORPUSCULAR HGB CONC 31 g/dL (33-37); MEAN PLATELET VOLUME 11.4 fl (7.4-10.4); PLATELET COUNT 254 K/mm3 (130-400); RED BLOOD COUNT 3.68 M/mm3 (4.10-5.30); RED CELL DISTRIBUTION WIDTH 15.6 % (11.5-14.5); WHITE BLOOD COUNT 4.7 K/mm3 (4.8-10.8)
[2021-10-14 09:28] LABS: LYMPHOCYTE 11 % (20-51); MONOCYTE 8 % (3-10); NEUTROPHILS 77 % (42-75)
--- NOTE | 2021-10-14 09:30 | NUR ---
APAP GIVEN PER THERAPY REQUEST. PATIENT AWARE AND WILL NOTIFY NURSING STAFF OF ANY COMPLAINTS OF PAIN.
[2021-10-14 11:52] LABS: PH-URINE 6.5 (5.0 - 8.0); URINE APPEARANCE CLOUDY; URINE BILIRUBIN NEGATIVE (NEGATIVE); URINE BLOOD NEGATIVE (NEGATIVE); URINE COLOR YELLOW; URINE GLUCOSE NEGATIVE (NEGATIVE); URINE KETONE NEGATIVE (NEGATIVE); URINE NITRATE NEGATIVE (NEGATIVE); URINE PROTEIN(semi-quant) NEGATIVE (NEGATIVE); URINE UROBILINOGEN NORMAL (NORMAL)
[2021-10-14 11:53] LABS: URINE LEUKOCYTE ESTERASE NEGATIVE (NEGATIVE)
--- NOTE | 2021-10-14 13:45 | NUR ---
PATIENT OXYGEN REMOVED AT THIS TIME TO MONITOR O2 STAT ON RA.
--- NOTE | 2021-10-14 14:00 | NUR ---
PATIENT HAS ROOM PRIVILAGES, AWARE OF D/C ON Wednesday10/16/21. PATIENT VERBILIZED UNDERSTANDING.
--- NOTE | 2021-10-14 15:00 | NUR ---
PATIENT O2 REMAINS STABLE ON RA. 95% AT RESTING. 90-92% WITH AMBULATION.
--- NOTE | 2021-10-14 18:05 | NUR ---
PATIENT REMIANS PLEASENT WITH CARE THROUGHT OUT THE DAY. CONTINUES TO DENY PAIN. STATES SHE HAS "ENJOYED WATCHING THE BIRDS BUILD THEIR NEST." PATIENT HAS AMBULATED TO BATHROOM THROUGHOUT THE DAY WITH MINIMAL DIFFICULTY AND NO COMPLAINTS OF PAIN OR NAUSEA. PATIENT CURRENTLY RESTING IN CHAIR. CHAIR ALARM ON, CALL LIGHT WITHIN REACH.
[2021-10-14 18:14] VITALS: BP 121/63
--- NOTE | 2021-10-14 18:37 | NUR ---
REPORT GIVEN TO ANA TOMLIN.
--- NOTE | 2021-10-14 20:40 | NUR ---
Report received from Shay PEREZ. Resting in bed. A/O x4. Spot check SPO2 98% on RA. Denies pain but Tylenol given for c/o's "legs jumping" occasionally. Blood sugar 260. 4 Units SS given and scheduled 8 Units of Levemier. Assessment completed. Denies wants or needs. Bed alarm on. Call light in reach.
--- NOTE | 2021-10-15 04:55 | NUR ---
AM medication taken. States did not sleep well. States nose is "stuffy". Uses Vicks vapo rub at bedside.
[2021-10-15 05:10] VITALS: BP 169/69
--- NOTE | 2021-10-15 07:12 | NUR ---
Report to Gaye FORD.
--- NOTE | 2021-10-15 10:34 | NUR ---
gave b meeting notes to Sujey. Called Rabia, Sujey's daughter to give update.
[2021-10-15 17:04] VITALS: BP 132/51
--- NOTE | 2021-10-15 19:25 | NUR ---
Report received from Gaye FORD. Up in recliner watching TV. A/O x4. States having some intermittent cramping of legs from walking. Distressed look on her face. States "I just know I am going to have to go into the bathroom and I don't know if I can walk in there". Encouragement and positive reinforcement given. Discussed increased activity will help strenghthen her endurance. Assessment completed. Denies questions, wants or needs at this time.
--- NOTE | 2021-10-15 20:00 | NUR ---
DEVELOPMENT EXPERT reports patient refused HS glucerna.
--- NOTE | 2021-10-16 06:11 | NUR ---
Up x2 in the night for BM. Ambulated to and from BR with 1:1 assist and platform walker.
[2021-10-16 06:22] VITALS: BP 179/70
--- NOTE | 2021-10-16 07:07 | NUR ---
Report to Bárbara FORD.
--- NOTE | 2021-10-16 10:41 | NUR ---
Pt a/o x4. Pt states that she had "2 very large bowel movements last night." Pt states that she is excited to be below 200 pounds. Pt states that all of her weight loss is not just due to the diuretic but also the bowel movements. This nurse advised pt that it could be a combination between diuretic and bowel movment that this nurse has noticed that her legs have less edema. This nurse advised pt that the more she gets up and moves the more her GI system will move and the less that she moves the less the GI system wants to move. Pt voiced understanding. Pt denies any pain when she is not moving, but c/o pain in rt hip upon movement. This nurse encouraged pt to continue moving through the pain to help heal. Tori, hospitalist, advised that pt could choose between Unna boots and TUAN wrap today. Pt advised this nurse to just wrap with TUAN bandages after her shower. Wrapped BLE with 1 TUAN wrap each. Pt states that it "feels good." Pt resting in bed, head elevated 30 degrees, pillow under knees to float heels, call light within reach, bed alarm activated.
[2021-10-16 18:27] VITALS: BP 172/68
--- NOTE | 2021-10-16 19:05 | NUR ---
Report received from Bárbara RN student. Patient sitting up in recliner with legs elevated. Esvin wraps in place to BLE. A/O x4. States she had a "pretty good day". Denies pain, SOA or nausea at rest. States she still gets "dizzy" and sometimes nauseated with standing. Would like Tylenol at HS to help her sleep. Assessment completed. Denies wants or needs at this time. Chair alarm on. Call light in reach.
--- NOTE | 2021-10-17 05:58 | NUR ---
Rested well this night. No BM this shift. Utilizing Pur-wick for urinary incontince.
[2021-10-17 06:18] VITALS: BP 176/67
--- NOTE | 2021-10-17 07:05 | NUR ---
Report to Bárbara FORD Student.
--- NOTE | 2021-10-17 10:52 | NUR ---
Pt a/o x4. Pt states that she slept well. Pt denies any n/v. Left pt sitting in bedside chair with PRETZEL COOKER soaking feet.
[2021-10-17 14:01] VITALS: BP 166/72
[2021-10-17 18:00] VITALS: BP 152/62
--- NOTE | 2021-10-17 18:41 | NUR ---
Pt a/o x4. Pt unhappy with meals. She states she will request canned soup from her daughter to be brought for her use. This nurse offered to make canned soup for pt, pt refused. Pt denies pain. Pt states that she only has pain when she has to move her hip. Pt is excited to get better with movement so that she can return home. Pt's daughter visited today and verbalized that she witnessed good progress from last week to today. Pt agreed with daughter. Pt resting in chair, feet elevated, call light within reach.
--- NOTE | 2021-10-17 19:00 | NUR ---
Report received from Bárbara villa.
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
--- NOTE | 2021-10-17 20:30 | NUR ---
Patient resting in bed awake. Levemier reviewed and given. Tylenol offered and given for intermittent right hip pain. Gold crooks lotion applied to feet and legs. Patient has pure wick external catheter on through the night.
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
--- NOTE | 2021-10-18 06:01 | NUR ---
Patient states she did rest well this noc. "Just woke up at 0230" thinking she needed to have bm but no bm.
[2021-10-18 06:07] VITALS: BP 156/64
[2021-10-18 17:04] VITALS: BP 116/48
[2021-10-18 17:05] VITALS: BP 153/65
--- NOTE | 2021-10-18 19:07 | NUR ---
Report given to LOGAN Washington.
--- NOTE | 2021-10-18 20:30 | NUR ---
Patient rests in bed and purewick catheter in place. States she has right hip achy pain with movement / and tylenol reviewed and given. Gold crooks lotion applied to legs and feet.
--- NOTE | 2021-10-19 05:27 | NUR ---
Patient awakened for vitals. 1000mls of urine emptied from pure wick catheter canister. States she slept well this noc.
[2021-10-19 06:09] VITALS: BP 161/70
[2021-10-19 07:45] VITALS: BP 91/30
--- NOTE | 2021-10-19 07:56 | NUR ---
This nurse responded to patient's call light. Upon arrival to room patient sitting up in chair with her head in her hands. She states, "I feel so dizzy, I'm going to be sick." BG 222, VS BP 91/30, P96, RR18, PS02 97%, Findings reported to Dr. Barry. Patient sipping ice water and resting in chair. She reports she is feeling better when she sits up and drinks water. See new orders.
--- NOTE | 2021-10-19 09:10 | NUR ---
Patient resting in chair eating breakfast. A&Ox4, RA, no c/o pain or discomfort. Fluids infusing per order. Patient tolerating well. LS CTA. Reports she is feeling better. Swallowed pills whole with jello and water. Requesting more ice water. Reports feeling very thirsty. Chair in locked position. Call light within reach.
[2021-10-19 09:39] LABS: POTASSIUM 3.8 mmol/L (3.5-5.1)
[2021-10-19 09:40] LABS: CALCIUM 9.5 mg/dL (8.3-10.5)
[2021-10-19 11:05] VITALS: BP 136/71
--- NOTE | 2021-10-19 11:06 | NUR ---
Bolus complete. Continue remaining 500ml of NS at 125 ml/hr, VORB per Dr. Barry. Patient tolerating treatment well. Resting in chair. Chair in locked position. Call light within reach.
[2021-10-19 18:07] VITALS: BP 115/81
--- NOTE | 2021-10-19 19:00 | NUR ---
Report received from Kimberley FORD. MANAGER TRANSPORT assists Patient to the bathroom and then to bed. Pure wick catheter applied.
--- NOTE | 2021-10-19 21:15 | NUR ---
Patient resting in bed. Tylenol given for intermittent right hip pain and for restless legs. Patient pleasant and alert and oriented x4. Esvin wraps to legs removed and gold crooks lotion applied. BLE elevated on pillow.
--- NOTE | 2021-10-20 02:26 | NUR ---
Patient rests with eyes closed. Respirations with ease.
--- NOTE | 2021-10-20 05:27 | NUR ---
Patient awakened for am vitals and med. States she slept well this noc. Continent of urine and pure wick intact.
[2021-10-20 06:01] VITALS: BP 163/65
--- NOTE | 2021-10-20 07:00 | NUR ---
Report received from Charlene Washington.
[2021-10-20 07:22] LABS: POTASSIUM 4.3 mmol/L (3.5-5.1)
[2021-10-20 07:23] LABS: BASO # 0.05 K/mm3 (0.02-0.10); CALCIUM 8.8 mg/dL (8.3-10.5); EOS # 0.15 K/mm3 (0.04-0.40); EOS % 3.9 % (1.0-5.0); HEMATOCRIT 39.2 % (37.0-47.0); HEMOGLOBIN 12.5 g/dL (12.5-16.0); LYMPH# 0.78 K/mm3 (1.50-4.00); MEAN CELL VOLUME 98 fl (78-100); MEAN CORPUSCULAR HEMOGLOBIN 31 pg (27-31); MEAN CORPUSCULAR HGB CONC 32 g/dL (33-37); MEAN PLATELET VOLUME 11.5 fl (7.4-10.4); MONO # 0.67 K/mm3 (0.20-0.80); NEU # 2.22 K/mm3 (1.40-6.50); PLATELET COUNT 246 K/mm3 (130-400); RED BLOOD COUNT 4.02 M/mm3 (4.10-5.30); RED CELL DISTRIBUTION WIDTH 15.3 % (11.5-14.5); WHITE BLOOD COUNT 3.9 K/mm3 (4.8-10.8)
--- NOTE | 2021-10-20 10:00 | NUR ---
Assessment charted. Pt in bed resting after shower this am. Up walking doing well, legs are improviing and less redness present. Denies shaq, INT to LFA. Will continue to monitor.
[2021-10-20 18:12] VITALS: BP 128/51
--- NOTE | 2021-10-20 18:59 | NUR ---
Pt has done well today, resting in chair at side of bed, taking PO well, did not require any pain medications over shift. Up with therapy and staff, moving well. Denies needs, will give report to nighthshift nruse who will resume care.
--- NOTE | 2021-10-20 19:43 | NUR ---
Report received from Mel FORD. Patient resting in bed. States she is "tired tonight." A/O x4. Denies pain but would like Tylenol with HS medications to help facilitate sleep. Esvin wraps removed at this time. No edema noted to BLE. Scaling improved but still has thick dry skin. INT patent to LFA. Assessment completed. Denies wants or needs. TRAINING MANAGER in to apply pur-wik.
[2021-10-21 06:01] VITALS: BP 183/70
--- NOTE | 2021-10-21 07:13 | NUR ---
Rested well without complaint. Up this AM to BR. States she didn't sleep well and worried that she hasn't had a BM yet. Report to Kimberley FORD.
[2021-10-21 08:40] VITALS: BP 140/53
--- NOTE | 2021-10-21 09:26 | NUR ---
Patient resting in chair visiting with family on telephone. A&Ox4, RA, no c/o pain or discomfort. Reports pain from this AM, "feels so much better." She reports feeling sore this AM from all the walking the last few day. Pleasant with staff. Swallowed pills whole with water and jello. Lotion and viviane wraps applied to BLE. Assisted with set up for AM cares. Had a shower 10/20/21. Last BM 10/20/21. Chair in locked position. Call light within reach.
[2021-10-21 17:15] VITALS: BP 107/54
--- NOTE | 2021-10-21 18:37 | NUR ---
CALLED DAUGHTER SOFIA AND GAVE HER THE UPDATE ON FLASH'S PROGRESS AND WILL KEEP HER AND REASSESS NEXT WEEK.
--- NOTE | 2021-10-21 19:25 | NUR ---
Report received from Kimberley FORD. Patient resting in bed with GANG SAWYER in room providing cares. A/O x4. Denies pain at rest but states she "wants a pain pill" with HS medications. This nurse clarifys with patient that she wants Oxycodone vs Tylenol and patient states yes the "pain pill, not Tylenol". States she didn't sleep well last night and that she thinks it will help more then the Tylenol. Assessment completed. TUAN wraps removed from LE for the night and Pur-wik applied. Bed alarm on. Call light in reach.
--- NOTE | 2021-10-21 21:00 | NUR ---
Provider notified of patient requesting Oxycodone for sleep, has denied pain to this nurse. Order received for Melatonin at this time. Patient educated on need to try Melatonin and Tylenol for sleep vs Oxycodone. Patient states "I just need the pain to go away". This nurse advised that patient denied pain and patient states "it's not really a pain, my legs get "jumpy" and "uncomfortable". This nurse also advised patient that she doesn't call in the night to report pain or problems sleeping and that I don't know this if she doesn't report it. "I just don't want to bother you". Educated on letting staff know if having pain or further trouble with sleep. Educated that provider will be getting labs in the AM to check electrolytes and that if she is having bad pain the Oxycodone is available but should only be taken for severe pain and not for sleep as this can delay her discharge to home. Patient verbalizes that she understands.
--- NOTE | 2021-10-22 00:14 | NUR ---
Patient rests with eyes closed and appears to be sleeping. No signs of pain or distress.
--- NOTE | 2021-10-22 06:28 | NUR ---
AM medication taken whole without difficulty. Patient reports she "slept well" until 0400 and "I feel better". Denies pain or needs this am.
[2021-10-22 06:41] VITALS: BP 159/66
--- NOTE | 2021-10-22 06:51 | NUR ---
Report to Kimberley FORD.
[2021-10-22 07:17] LABS: POTASSIUM 4.3 mmol/L (3.5-5.1)
[2021-10-22 07:18] LABS: CALCIUM 8.8 mg/dL (8.3-10.5)
[2021-10-22 07:25] LABS: MAGNESIUM 2.53 mg/dL (1.60-2.60)
[2021-10-22 13:54] VITALS: BP 81/34
--- NOTE | 2021-10-22 14:04 | NUR ---
PCT informed nurse that patient is complaining of blurred vision and dizziness. BG 142. Advised PCT to check BP. BP 81/34. Elevated legs and reclined patient back in chair. Discussed with SAMMY Singh. Advised to push fluids and disregard 2000 ml fluid restriction at this time, and to recheck a manual BP. Manual BP 92/44. Patient verbalized feeling better. Advised PCT to recheck BP in 30 minutes.
[2021-10-22 14:30] VITALS: BP 110/52
--- NOTE | 2021-10-22 14:38 | NUR ---
Repeat manual BP 110/52. SAMMY Singh advised to hold afternoon dose of demedex.
[2021-10-22 17:05] VITALS: BP 117/53
--- NOTE | 2021-10-22 18:25 | NUR ---
Patient A&O. Encouraged by the distance she was able to walk today and seems to be in a good mood throughout the shift. No episodes of tearfulness. No compliants of pain. Ambulates to the bathroom with minimal difficulty. Resting in bed after supper. External catheter placed per patient request. Call light in reach, bed alarm on.
--- NOTE | 2021-10-22 19:00 | NUR ---
Report received from Buzz FORD.
--- NOTE | 2021-10-22 21:15 | NUR ---
Patient rests in bed. Denies pain . HS meds along with tylenol for pain prevention reviewed and given.
--- NOTE | 2021-10-23 02:00 | NUR ---
Patient now resting with eyes closed. Respirations with ease.
--- NOTE | 2021-10-23 05:30 | NUR ---
Patient reports she didn't sleep well this noc. Assisted up to the bathroom with platform walker then rests back in bed.
[2021-10-23 06:12] VITALS: BP 146/55
[2021-10-23 08:09] VITALS: BP 120/58
--- NOTE | 2021-10-23 12:48 | NUR ---
Pt a/o x4. Pt sitting in chair with legs down eating breakfast. pt states that she did not sleep well. Pt anxious to be discharged and return home. Pt took medicine well. Pt in chair, alarm set, call light within reach.
[2021-10-23 17:33] VITALS: BP 157/55
--- NOTE | 2021-10-23 19:00 | NUR ---
Report received from Bárbara nursing assistants teacher.
--- NOTE | 2021-10-23 21:00 | NUR ---
Patient resting in bed awake. Pure wick urinary external catheter in place. HS meds along with tylenol for left leg achyness reviewed and given. Finished enlive that was given earlier. Leg viviane wraps removed and gold crooks lotion applied. Patient alert and oriented x 4.
--- NOTE | 2021-10-24 01:13 | NUR ---
Patient has been resting with eyes closed.
--- NOTE | 2021-10-24 05:22 | NUR ---
Patient continues to rest with eyes closed. Respirations with ease.
--- NOTE | 2021-10-24 05:52 | NUR ---
Patient awake and states she slept good this noc. "woke up a couple of times and fell right back to sleep".
[2021-10-24 06:07] VITALS: BP 158/60
--- NOTE | 2021-10-24 07:00 | NUR ---
Report received from LOGAN [place].
--- NOTE | 2021-10-24 10:06 | NUR ---
Assessment charted. Pt doing well. Sitting in chair at side of bed, able to ambulate with walker and SBA, no longer requiring platform walker. Legs have improved immensely and are no longer scaling but pink and dry. Denies pain. Taking PO well. Will continue to monitor.
[2021-10-24 17:14] VITALS: BP 138/63
--- NOTE | 2021-10-24 18:03 | NUR ---
Pt has done well over shift. Resting in chair most of day, has had visitors. Moving well with walker. Refusing to wear any RAMÓN hose, states she is "adamant about refusing these". Will give report to [facility] nurse who will resume care.
--- NOTE | 2021-10-24 18:52 | NUR ---
Report received from Mel FORD. Up in W/C. Requests and given Tylenol for R hip pain 12/28. States "I walked alot today and it hurts". Assessment completed. Denies wants or needs at this time.
--- NOTE | 2021-10-25 00:16 | NUR ---
Resting with eyes closed. No signs of pain or distress. Bed alarm on. Call light in reach.
--- NOTE | 2021-10-25 06:13 | NUR ---
Rested well all night. No complaints of pain this AM. AM medication taken without difficulty.
[2021-10-25 06:24] VITALS: BP 154/63
--- NOTE | 2021-10-25 06:58 | NUR ---
Report to Balbina FORD.
--- NOTE | 2021-10-25 07:00 | NUR ---
Received report from ANA Austin.
--- NOTE | 2021-10-25 08:15 | NUR ---
Patient A&Ox4. Sitting up in recliner. Reports sleeping well last night. Denies pain. Assessment complete. +2 edema to BLE, TUAN wraps applied. Needs met. Fall precautions in place.
[2021-10-25 16:44] VITALS: BP 135/58
--- NOTE | 2021-10-25 18:37 | NUR ---
Report given to ANA Austin.
--- NOTE | 2021-10-25 19:38 | NUR ---
Report received from Balbina FORD. Patient sitting up in recliner with legs elevated. Esvin wraps in place. Watching TV. A/O x4. Denies pain or needs at this time. Assessment completed.
--- NOTE | 2021-10-26 05:37 | NUR ---
Rested well until early this AM per report. AM medication and vital signs obtained. Denies pain. Weight unchanged from yesterday AM.
[2021-10-26 06:17] VITALS: BP 162/63
--- NOTE | 2021-10-26 06:51 | NUR ---
Report to Balbina FORD.
--- NOTE | 2021-10-26 07:00 | NUR ---
Received report from ANA Austin.
--- NOTE | 2021-10-26 07:15 | NUR ---
Patient A&Ox4. Reports having interrupted sleeping but overall slept well. Denies pain. Assessment completed. Dependent redness remains to BLE. Needs met. Fall precautions in place.
--- NOTE | 2021-10-26 14:59 | NUR ---
Report given to LOGAN Leal.
[2021-10-26 16:45] VITALS: BP 134/62
--- NOTE | 2021-10-26 19:00 | NUR ---
Report received from Mel FORD.
--- NOTE | 2021-10-26 20:30 | NUR ---
Patient rests in bed with eyes closed. Awakened for HS meds and tylenol given per request to aid with sleep. Denies pain at this time. BLE viviane wraps removed and gold crooks lotion applied to lower legs and feet. Patient going without pure wick catheter tonight.
--- NOTE | 2021-10-27 04:21 | NUR ---
Patient just returned from the bathroom to void and have bm. Rests in bed and states "yes I did" to getting good sleep this noc.
[2021-10-27 05:58] VITALS: BP 128/53
--- NOTE | 2021-10-27 05:58 | NUR ---
Patient voided 3 times this noc and continent of urine.
--- NOTE | 2021-10-27 13:00 | NUR ---
Received report from Laure Soria RN.
--- NOTE | 2021-10-27 13:08 | NUR ---
REPORT GIVEN TO DECLAN FORD
--- NOTE | 2021-10-27 16:15 | NUR ---
Blood glucose 74. [place] juice provided and will recheck.
[2021-10-27 17:08] VITALS: BP 156/55
--- NOTE | 2021-10-27 19:00 | NUR ---
Report received from Balbina FORD.
--- NOTE | 2021-10-27 20:30 | NUR ---
Patient rests in bed and HS meds along with tylenol reviewed and given. Denies pain at this time. Alert and oriented x 4. Esivn wraps off for the night and gold crooks lotion applied.
--- NOTE | 2021-10-28 03:42 | NUR ---
Patient up to the bathroom with walker accompanied by MANAGER CARD and back to bed. States she's been sleeping "off and on".
[2021-10-28 06:07] VITALS: BP 178/68
[2021-10-28 07:06] LABS: POTASSIUM 4.1 mmol/L (3.5-5.1)
[2021-10-28 07:07] LABS: CALCIUM 8.8 mg/dL (8.3-10.5)
[2021-10-28 07:43] LABS: BASO # 0.05 K/mm3 (0.02-0.10); EOS # 0.09 K/mm3 (0.04-0.40); HEMOGLOBIN 12.5 g/dL (12.5-16.0); LYMPH# 0.71 K/mm3 (1.50-4.00); MEAN CELL VOLUME 97 fl (78-100); MEAN CORPUSCULAR HEMOGLOBIN 31 pg (27-31); MEAN CORPUSCULAR HGB CONC 32 g/dL (33-37); MEAN PLATELET VOLUME 11.4 fl (7.4-10.4); MONO # 0.65 K/mm3 (0.20-0.80); NEU # 3.02 K/mm3 (1.40-6.50); PLATELET COUNT 237 K/mm3 (130-400); RED BLOOD COUNT 4.03 M/mm3 (4.10-5.30); WHITE BLOOD COUNT 4.5 K/mm3 (4.8-10.8)
--- NOTE | 2021-10-28 09:58 | NUR ---
Pt a/o x4. Pt sitting in chair eating breakfast. She states she slept well except for getting up to void x4. This nurse wrapped BLE with TUAN bandages. Pt in chair, feet elevated, alarm set, call light within reach. Pt denies any pain.
[2021-10-28 17:08] VITALS: BP 131/61
--- NOTE | 2021-10-28 20:20 | NUR ---
Report received from Mel FORD. Patient resting in bed. A/O x4. Denies pain. Assessment completed. Accu-check 234. HS medications and scheduled [place] given. Denies wants or needs. Bed alarm on. Call light in reach.
--- NOTE | 2021-10-28 23:32 | NUR ---
Up to BR with SBA and walker. Continent of urine. Assisted back to bed. Denies wants or needs.
--- NOTE | 2021-10-29 05:51 | NUR ---
Up to BR x3 in the night. States rested in between. AM medication taken. Denies pain or needs.
[2021-10-29 05:55] VITALS: BP 149/69
--- NOTE | 2021-10-29 07:00 | NUR ---
Report received from TAMI Boone
--- NOTE | 2021-10-29 08:30 | NUR ---
Assessment charted. PT anticipating dishcarge today, looking forward to discharge and hoping to dishcarge today. Up walking around in room with walker and gait belt. TUAN wraps applied bilaterally to legs, educated pt on wrapping from toe towards knee. Pt denies pain. Resting in chair at side of bed. Per Bridget okay to take home our walker temporarily until home walker can be delivered by [employer]. Will continue to monitor.
[2021-10-29] MEDS ORDERED: LISINOPRIL2.5 MG PO (10:18)
[2021-10-29] MEDS ORDERED: TORSEMIDE20 M1 PO (10:19)
[2021-10-29] MEDS ORDERED: EFFER-K20 MEQ PO (10:19)
--- NOTE | 2021-10-29 12:11 | NUR ---
Discharge completed at this time. Pt received discharge packet. Reviewed f/u appointments, medications, answered all questions. Pt able to go home with [facility] walker and will return on 11/05 for f/u with Srinath and will return walker at that time, okay per Tori Hamilton and Bridget Faye. Daughter at bedside. Pt left via w/c with [facility] staff with all belongings, daughter to drive home, criteria met.
== END 2021-10-29 12:05 | disposition home health service (06) | DRG 561 ==
LOC: MED/SURG 17:12
PROVIDERS: Family Medicine; Nurse Practitioner Family; Physician Assistant; ADMIT Family Medicine
DX: S72.91XD Unspecified fracture of right femur, subsequent encounter for closed fracture with routine healing (principal); I11.0 Hypertensive heart disease with heart failure; I50.9 Heart failure, unspecified; I48.91 Unspecified atrial fibrillation; E11.9 Type 2 diabetes mellitus without complications; I87.8 Other specified disorders of veins; M17.11 Unilateral primary osteoarthritis, right knee; E87.6 Hypokalemia; G47.00 Insomnia, unspecified; E66.9 Obesity, unspecified; Z68.37 Body mass index [BMI] 37.0-37.9, adult; W18.30XD Fall on same level, unspecified, subsequent encounter; Z79.4 Long term (current) use of insulin; Z79.891 Long term (current) use of opiate analgesic; Z96.642 Presence of left artificial hip joint
CPT/HCPCS: J1650; J1815; J7030

== ENCOUNTER → 2021-11-10 | Outpatient (CLI) | payer MEDICARE, OTHER ==
[~2021-11-10] MED LIST changes: +COLACE100 M1 PO; +COZAAR25 M1 PO; +EFFER-K20 MEQ PO; +FERRO-TIME325 MG PO; +INSULIN AS100 UNIT/2 SQ; +INSULIN AS100 UNIT/3 SQ; +IPRATROPIUM BROM3 M1 IH; +LASIX40 M1 PO; +LEVEMIR FLEX100 U/ML SQ; +LISINOPRIL2.5 MG PO; +MIRALAX17 GM PO; +MULTI-VITAMIN1 EACH PO; +OS-CAL 500+D31 EACH PO; +ROXICODONE 55 MG/TAB PO; +SENNA LAX8.6 M1 PO; +TORSEMIDE20 M1 PO
[2021-11-11 13:53] LABS: ALBUMIN 3.9 g/dL (3.4-4.8)
[2021-11-11 13:54] LABS: POTASSIUM 5.2 mmol/L (3.5-5.1)
[2021-11-11 13:55] LABS: CALCIUM 10.1 mg/dL (8.3-10.5)
[2021-11-11 13:56] LABS: TOTAL PROTEIN 6.4 g/dL (6.2-8.1)
[2021-11-11 13:58] LABS: TOTAL BILIRUBIN 0.4 mg/dL (0.2-1.2)
== END ==
LOC: LAB 12:42
PROVIDERS: Family Medicine
DX: I95.1 Orthostatic hypotension (principal)